=== PATIENT | male | born 1950 | race African-American/Black ===

== ENCOUNTER 2022-03-02 11:31 | Inpatient (IN) | payer MEDICARE, OTHER ==
[~2022-03-02] VITALS: Ht 182.9 cm; Wt 79.0 kg
[~2022-03-02 11:31] MED LIST: ALBU18HF2 IH; FLUT1DIS3 INH; HYDR100T26 MT; LEVO-65 MT; LOSA100T3 PO
[2022-03-02] MEDS ORDERED: IBUPROFEN 600MG TABLET PO ONE (12:15)
[2022-03-02] MEDS ORDERED: MORPHINE SULFATE 4 MG/ML CPJ (NOT FOR IM USE) IV ONE ×2 (14:15→20:45)
[2022-03-02 14:55] LABS: BASOPHILS % 0.3 % (0.0-2.0); EOSINOPHILS % 1.4 % (0.0-5.0); HEMATOCRIT. 46.9 % (42.0-52.0); HEMOGLOBIN. 15.9 g/dL (14.0-18.0); LYMPHOCYTES % 10.8 % (20.0-50.0); MEAN CORPUSCULAR HEMOGLOBIN 34.4 pg (28.0-32.0); MEAN CORPUSCULAR VOLUME 101.6 fL (80.0-94.0); MEAN PLATELET VOLUME 8.7 fl (7.4-10.4); MONOCYTES % 8.9 % (2.0-8.0); NEUTROPHILS % 78.6 % (40.0-76.0); PLATELET 158 x1000/uL (130-400); RED BLOOD CELL COUNT 4.62 mill/uL (4.7-6.1); RED CELL DISTRIBUTION WIDTH 14.8 % (11.6-14.6)
[2022-03-02 15:02] LABS: CHLORIDE 104 mEq/L (98-107)
[2022-03-02 15:06] LABS: INR 1.1; PROTHROMBIN TIME 11.3 sec (9.6-11.0)
[2022-03-02] MEDS ORDERED: HYDRALAZINE 20MG/ML VIAL IV ONE ×2 (20:45→23:15)
[2022-03-03] MEDS ORDERED: MORPHINE SULFATE 4 MG/ML CPJ (NOT FOR IM USE) IV ONE (00:45)
[2022-03-03] MEDS ORDERED: HYDRALAZINE 20MG/ML VIAL IV ONE (07:15)
[2022-03-03 08:15] VITALS: BP 158/89
[2022-03-03] MEDS ORDERED: ONDANSETRON HCL 4MG/2ML INJ IV PRN ×2 (09:15→18:15)
[2022-03-03] MEDS ORDERED: ACETAMINOPHEN 325MG TABLET PO PRN (09:15)
[2022-03-03] MEDS ORDERED: NALOXONE HCL 0.4MG/ML VIAL IV PRN (09:30)
[2022-03-03] MEDS: HYDRALAZINE 20MG/ML VIAL IV SCH ×2 (11:20→19:10)
[2022-03-03 12:00] VITALS: BP 164/91
[2022-03-03] MEDS: ENALAPRIL 2.5MG/2ML VIAL 2ML IV SCH (12:00)
[2022-03-03] MEDS ORDERED: ENALAPRIL 1.25MG/ML VIAL 1ML IV SCH (12:00)
[2022-03-03 13:00] VITALS: BP 106/79
[2022-03-03] MEDS: SODIUM CHLORIDE 0.45% 1,000 ML IV SCH ×2 (13:11→23:58)
[2022-03-03 15:20] VITALS: BP 146/84
[2022-03-03] MEDS ORDERED: MIDAZOLAM HCL 2 MG/2 ML VIAL ONE (15:54)
[2022-03-03] MEDS ORDERED: DEXAMETHASONE 4MG/ML 1ML VIAL ONE (16:23)
[2022-03-03] MEDS ORDERED: PROPOFOL 200MG/20ML VIAL IV ONE (16:23)
[2022-03-03] MEDS ORDERED: ONDANSETRON HCL 4MG/2ML INJ ONE (16:23)
[2022-03-03] MEDS ORDERED: FENTANYL CITRATE/PF 50MCG/ML 2ML VIAL ONE (16:23)
[2022-03-03] MEDS ORDERED: CEFAZOLIN SODIUM 1000MG/VIAL ONE (16:24)
[2022-03-03] MEDS ORDERED: SUCCINYLCHOLINE CHLORIDE 200MG/10ML IV ONE (16:24)
[2022-03-03] MEDS ORDERED: LIDOCAINE HCL/EPINEPHRINE 1%-EPI 1:100,000 20 ML VIAL ONE (16:26)
[2022-03-03] MEDS ORDERED: VANCOMYCIN HCL 1 GM/VIAL ONE (16:26)
[2022-03-03 16:59] LABS: CHLORIDE 103 mEq/L (98-107)
[2022-03-03] MEDS ORDERED: ATROPINE SULFATE 0.4MG/ML VIAL IV PRN (17:15)
[2022-03-03] MEDS ORDERED: HYDROMORPHONE HCL/PF 2MG/ML CPJ IV PRN ×2 (17:15→18:15)
[2022-03-03] MEDS ORDERED: FENTANYL CITRATE/PF 50MCG/ML 2ML VIAL IV PRN (17:15)
[2022-03-03] MEDS ORDERED: HYDROCODONE/ACETAMINOPHEN 5/325MG TABLET PO PRN (18:15)
[2022-03-03 21:00] VITALS: BP 142/68
[2022-03-03] MEDS: CEFAZOLIN 1000MG PREMIX 50 ML IV SCH (23:58)
[2022-03-04] VITALS (7 sets, daily range): BP systolic 107–176; BP diastolic 68–89
[2022-03-04] MEDS: HYDRALAZINE 20MG/ML VIAL IV SCH ×2 (00:18→05:59)
[2022-03-04] MEDS: ENALAPRIL 2.5MG/2ML VIAL 2ML IV SCH ×3 (00:39→05:59)
[2022-03-04] MEDS: MORPHINE SULFATE 2 MG/ML CPJ (NOT FOR IM USE) IV PRN (04:26)
[2022-03-04] MEDS: CEFAZOLIN 1000MG PREMIX 50 ML IV SCH ×3 (05:59→21:01)
[2022-03-04 07:32] LABS: HEMATOCRIT. 41.7 % (42.0-52.0); MEAN CORPUSCULAR HEMOGLOBIN 34.6 pg (28.0-32.0); MEAN CORPUSCULAR VOLUME 102.7 fL (80.0-94.0); MEAN PLATELET VOLUME 9.5 fl (7.4-10.4); PLATELET 178 x1000/uL (130-400); RED BLOOD CELL COUNT 4.05 mill/uL (4.7-6.1); RED CELL DISTRIBUTION WIDTH 14.8 % (11.6-14.6)
[2022-03-04 07:49] LABS: CHLORIDE 101 mEq/L (98-107)
[2022-03-04] MEDS: LOSARTAN POTASSIUM 50 MG TABLET PO SCH ×2 (08:23→21:01)
[2022-03-04] MEDS: HYDRALAZINE HCL 50MG TABLET PO SCH ×3 (08:28→21:01)
[2022-03-04] MEDS: HYDROCODONE/ACETAMINOPHEN 5/325MG TABLET PO PRN ×3 (08:31→21:00)
[2022-03-04] MEDS ORDERED: ENOXAPARIN 40MG/0.4ML SYR SUBCUT SCH (09:00)
[2022-03-04] MEDS: SODIUM CHLORIDE 0.45% 1,000 ML IV SCH (13:04)
[2022-03-04 14:18] LABS: PLATELET ESTIMATE NORMAL
[2022-03-05] VITALS (7 sets, daily range): BP systolic 127–168; BP diastolic 73–88
[2022-03-05] MEDS: HYDROCODONE/ACETAMINOPHEN 5/325MG TABLET PO PRN ×3 (00:46→09:34)
[2022-03-05] MEDS: HYDRALAZINE HCL 50MG TABLET PO SCH ×3 (05:07→21:02)
[2022-03-05] MEDS: SODIUM CHLORIDE 0.45% 1,000 ML IV SCH (05:10)
[2022-03-05 06:10] LABS: HEMATOCRIT. 41.1 % (42.0-52.0); HEMOGLOBIN. 13.8 g/dL (14.0-18.0); MEAN CORPUSCULAR HEMOGLOBIN 34.7 pg (28.0-32.0); MEAN CORPUSCULAR VOLUME 103.2 fL (80.0-94.0); MEAN PLATELET VOLUME 10.1 fl (7.4-10.4); PLATELET 168 x1000/uL (130-400); RED BLOOD CELL COUNT 3.98 mill/uL (4.7-6.1); RED CELL DISTRIBUTION WIDTH 14.9 % (11.6-14.6)
[2022-03-05 06:22] LABS: CHLORIDE 99 mEq/L (98-107)
[2022-03-05] MEDS: LOSARTAN POTASSIUM 50 MG TABLET PO SCH ×2 (09:05→20:25)
[2022-03-05] MEDS: ASPIRIN 325MG EC TABLET PO SCH (09:05)
[2022-03-05 11:50] LABS: PLATELET ESTIMATE NORMAL
[2022-03-05] MEDS: MORPHINE SULFATE 2 MG/ML CPJ (NOT FOR IM USE) IV PRN ×2 (13:44→20:25)
[2022-03-05] MEDS: AMLODIPINE 5MG TABLET PO SCH (14:19)
[2022-03-05] MEDS ORDERED: CLONIDINE 0.1MG TABLET PO PRN (18:30)
[2022-03-06] VITALS (7 sets, daily range): BP systolic 133–144; BP diastolic 64–70
[2022-03-06] MEDS: MORPHINE SULFATE 2 MG/ML CPJ (NOT FOR IM USE) IV PRN ×3 (04:37→13:11)
[2022-03-06] MEDS: HYDRALAZINE HCL 50MG TABLET PO SCH ×2 (05:05→13:10)
[2022-03-06 07:07] LABS: HEMATOCRIT. 35.8 % (42.0-52.0); HEMOGLOBIN. 12.1 g/dL (14.0-18.0); MEAN CORPUSCULAR HEMOGLOBIN 35.1 pg (28.0-32.0); MEAN CORPUSCULAR VOLUME 103.3 fL (80.0-94.0); PLATELET 191 x1000/uL (130-400); RED BLOOD CELL COUNT 3.47 mill/uL (4.7-6.1); RED CELL DISTRIBUTION WIDTH 14.8 % (11.6-14.6)
[2022-03-06] MEDS: LOSARTAN POTASSIUM 50 MG TABLET PO SCH (08:47)
[2022-03-06] MEDS: AMLODIPINE 5MG TABLET PO SCH (08:47)
[2022-03-06] MEDS: ASPIRIN 325MG EC TABLET PO SCH (08:47)
[2022-03-06 10:22] LABS: PLATELET ESTIMATE NORMAL
[2022-03-06 16:36] LABS: HEMATOCRIT. 38.5 % (42.0-52.0); HEMOGLOBIN. 12.8 g/dL (14.0-18.0); MEAN CORPUSCULAR HEMOGLOBIN 34.4 pg (28.0-32.0); MEAN CORPUSCULAR VOLUME 103.6 fL (80.0-94.0); MEAN PLATELET VOLUME 9.4 fl (7.4-10.4); PLATELET 233 x1000/uL (130-400); RED BLOOD CELL COUNT 3.72 mill/uL (4.7-6.1); RED CELL DISTRIBUTION WIDTH 14.6 % (11.6-14.6)
[2022-03-06 16:37] LABS: CHLORIDE 96 mEq/L (98-107)
[2022-03-06 20:22] LABS: PLATELET ESTIMATE NORMAL
== END 2022-03-06 18:40 | DRG 522 ==
LOC: ER 11:31 → CANBEDREQ 18:18 → 8WST 03-03 08:28
PROVIDERS: ADMIT Internal Medicine; ATTEND Internal Medicine
PROC: 0SRS0JA Replacement of Left Hip Joint, Femoral Surface with Synthetic Substitute, Uncemented, Open Approach (ICD-10-PCS; principal; 2022-03-03)
DX: S72.012A Unspecified intracapsular fracture of left femur, initial encounter for closed fracture (principal); E44.1 Mild protein-calorie malnutrition; F17.210 Nicotine dependence, cigarettes, uncomplicated; M17.0 Bilateral primary osteoarthritis of knee; Z20.822 Contact with and (suspected) exposure to COVID-19; J44.9 Chronic obstructive pulmonary disease, unspecified; I10 Essential (primary) hypertension; Z68.23 Body mass index [BMI] 23.0-23.9, adult; Z79.51 Long term (current) use of inhaled steroids; Z85.038 Personal history of other malignant neoplasm of large intestine; Z96.659 Presence of unspecified artificial knee joint; Z87.01 Personal history of pneumonia (recurrent); W19.XXXA Unspecified fall, initial encounter; Y93.89 Activity, other specified; Y92.89 Other specified places as the place of occurrence of the external cause; Y99.8 Other external cause status
CPT/HCPCS: 36415; 72170; 73552; 80048; 80053; 83735; 85025; 86850; 86900; 87426; 88311; 93005; 93306; 93970; 97116; 97162; 97165; 97530; 99285; C1776; C9803; J0330; J0360; J0690; J1100; J1170; J1650; J2250; J2270; J2405; J2704; J3010; J3370; J3490